=== PATIENT | female | born 1950 | race Caucasian/White ===

== ENCOUNTER 2017-12-17 09:54 | Outpatient (CLI) | payer OTHER | END 2017-12-17 09:55 | disposition home or self-care (01) | LOC: DTY/OP 09:54 | PROVIDERS: ATTEND Specialist | DX: Z01.818 Encounter for other preprocedural examination (principal); E66.01 Morbid (severe) obesity due to excess calories | CPT/HCPCS: 97802 ==

== ENCOUNTER 2018-01-15 12:43 | Outpatient (CLI) | payer MEDICARE | END 2018-01-15 12:44 | disposition home or self-care (01) | LOC: LABBT 12:43 | PROVIDERS: ATTEND Specialist | DX: Z01.818 Encounter for other preprocedural examination (principal); E66.01 Morbid (severe) obesity due to excess calories; Z68.42 Body mass index [BMI] 45.0-49.9, adult ==

== ENCOUNTER 2018-01-15 13:00 | Inpatient (IN) | payer MEDICARE ==
[2018-01-15 13:13] VITALS: BMI 44.0
--- NOTE | 2018-01-15 13:37 | HP ---
This is an addendum to a history and physical that I dictated 12/06/2017. HISTORY OF PRESENT ILLNESS: Shanita Roa is a 67-year-old female, morbidly obese initially seen 243 pounds, 45 BMI, currently 233 pounds, 44 BMI, attended our bariatric seminar. She has failed pr evious nonsurgical weight loss efforts with comorbidities of arthritis, having had a right total knee replacement contemplating left total knee replacement. She ambulates with a cane. She has a histor y of coronary artery disease, hypertension, elevated cholesterol, sciatica, chronic knee, ankle and h ip pain and stress urinary incontinence. She denies any past history of diabetes, GERD, sleep apnea, DVT or pulmonary embolism. She has never had a myocardial infarction, but coronary bypass grafting in 2003, currently asymptomatic from a cardiac standpoint. She has chronic Coumadin anticoagulation for a prosthetic mitral valve. She had a cardiac stress test in 07/2017 that was unremarkable. She has seen Dr. Keyshawn Porras and preoperative evaluation and cleared her for surgery. Plan is to hold her Coumadin for 5 days and resume it 2-3 days postoperatively. Plan is for a laparoscopic sleeve gastre ctomy. She understands risks and benefits and consents. Questions answered today. Preoperative labs 12/07/2017; CBC: Hemoglobin 12. Thyroid function normal, vitamin D low at 13.4 on replacement. Folate levels normal, B12 levels normal. Hemoglobin A1c 5.8, PTH intact 462. Vitamin B1 133, normal. H. pylori elevated, amylase pyloric therapy, being followed closely by the [facility] while on antibiotics and home Coumadin. PAST MEDICAL HISTORY: For past history, see recently dictated history and physical. PHYSICAL EXAMINATION: VITAL SIGNS: Height 5 foot 1, 243 pounds, 45 BMI on initial visit and today's visit 233 pounds, 44 B ME, 134/63, 89, 97.6 degrees. HEENT: Unremarkable. LUNGS: Clear to auscultation. CARDIAC: Regular rate and rhythm without murmur or gallop. ABDOMEN: Soft, nontender, no masses. EXTREMITIES: Unremarkable. ASSESSMENT AND PLAN: Morbid obesity, comorbidities as noted above. PLAN: Laparoscopic sleeve gastrectomy. Risk and benefits reviewed with her. Questions answered. S he is committed to be successful with postoperative followup. In fact, she states that she wants to attend support groups prior to her surgery. She has visited with psychologist and feels she would be a good candidate and has visited with dietary regarding her perioperative dietary changes.
[2018-01-23] MEDS ORDERED: Scopolamine 1.5 mg/72 hour Patch ONE (06:32)
[2018-01-23] MEDS ORDERED: Sodium Chloride 0.9% 100 ML ONE (06:32)
[2018-01-23] MEDS ORDERED: cefOXitin 2 GM VIAL ONE (06:32)
[2018-01-23] MEDS ORDERED: Ketorolac Tromethamine 30 MG/ML VIAL ONE (06:32)
[2018-01-23] MEDS ORDERED: Heparin 5,000 UNITS/ML VIAL ONE (06:32)
[2018-01-23] MEDS ORDERED: Bupivacaine/Epinephrine 0.25% 30 ML VIAL ONE (06:34)
[2018-01-23 06:44] LABS: INR-International Normal Ratio 1.1; Prothrombin Time 14.1 SEC (12.0-14.7)
[2018-01-23] MEDS ORDERED: Fentanyl 250 MCG/5 ML VIAL ONE (06:56)
[2018-01-23] MEDS ORDERED: SUGAMMADEX SODIUM 500 MG/5 ML VIAL ONE (07:17)
[2018-01-23] MEDS ORDERED: Ondansetron HCl/PF 4 MG/2 ML Vial IVP PRN ×2 (07:52→09:21)
[2018-01-23] MEDS ORDERED: Morphine 4 MG/ML VIAL SLOW IVP PRN (07:52)
[2018-01-23] MEDS ORDERED: Dextrose 5% in Water 1,000 ML IV PRN (07:52)
[2018-01-23] MEDS ORDERED: Hydrocodone-Acetamin 15 ML UDCUP PO PRN (07:52)
[2018-01-23] MEDS ORDERED: Dextrose 50% Abboject 50 ML SYRINGE SLOW IVP PRN (07:52)
[2018-01-23] MEDS ORDERED: hydrALAZINE 20 MG/ML VIAL SLOW IVP PRN (07:52)
[2018-01-23] MEDS ORDERED: diphenhydrAMINE 50 MG/ML VIAL IVP PRN (07:52)
[2018-01-23] MEDS ORDERED: Promethazine HCl 25 MG/ML VIAL IM PRN (09:21)
[2018-01-23] MEDS ORDERED: Promethazine HCl 25 MG/ML VIAL SLOW IVP PRN (09:21)
[2018-01-23] MEDS ORDERED: Fentanyl 100 MCG/2 ML VIAL ONE ×2 (11:16→12:17)
--- NOTE | 2018-01-23 12:14 | OP ---
DATE OF PROCEDURE: 01/23/2018 PREOPERATIVE DIAGNOSES: Morbid obesity, presenting weight 243 pounds. Weight just prior to surgery 233 pounds. Presenting BMI 45, BMI just at the time of surgery 43. Comorbidities; coronary artery d isease, hypertension, elevated cholesterol, sciatic, stress urinary incontinence. PROCEDURE: Laparoscopic sleeve gastrectomy, hiatal hernia repair, completion upper endoscopy. 36 Fr ench bougie used, staple line within 4 cm of the pylorus. Omental patch over the upper staple line f undus. SURGEON: Dr. Medardo Borrego ANESTHESIA: General. Local 0.25% Marcaine with epinephrine, 60 mL. PROCEDURE: The patient was taken to the operating room where under general anesthesia, abdomen was p repared with ChloraPrep, draped in routine fashion in supine position and then positioned reverse Sourav ndelenburg. Supraumbilical incision made. Pneumoperitoneum to 15 mmHg obtained with the Veress need le, replacing it with a 5 port and video laparoscope inserted. Bilateral midclavicular upper abdomin al incisions made and a 15 port placed on the left, a 12 port placed on the right and bilateral far l ateral subcostal incision made and 5 ports placed. Subxiphoid incision made and Nathansen liver retr actor placed under laparoscopic visualization, retracting the left lobe of the liver. The liver was malleable, small and nonfatty. Hiatus was well visualized. Gastrocolic ligament taken down with the LigaSure beginning at the distal greater curvature progressing up towards the angle of His, identify ing the angle of His and identifying this hiatal hernia. Sleeve gastrectomy undertaken by initially placing a 36 bougie positioned along the lesser curvature, a position just proximal to the pylorus. Initial staple line green load fired in the antrum, subsequent gold and blue loads fired taking care to not encroach in the area of the incisura. Serial divisions taking care to remove all redundant st omach, serially fired up towards the fundus just lateral to the angle of His. Once this was complete d, the stomach was removed through the 15 port and 0 Vicryl GraNee needle used to place [id number] ht suture under laparoscopic visualization. Stomach had been removed and submitted to Pathology. Go od hemostasis obtained. Clips applied along the staple line. At this point, the hiatal hernia was c losed by placing a Colville drain through a 12 mm port and held in place by an instrument placed throu gh a 5 mm port placed in the left lower quadrant. Once this was in position, the Manas drain place d around the lower esophagus downward caudal traction applied and the right and left crura approximat ed after taking down the gastrohepatic ligament, clearing this for visualization. EndoStitch 0 Bralo n used to close the posterior hiatus with 2 stitches with a 36-Irish bougie in place. At this point , while the bougie was in place I then applied omentum to the upper fundus staple line and to the rig ht and left crura using the EndoStitch. EndoStitch was then used to apply omentum near the upper sta ple line just approximately 4 cm caudally. At this point, the bougie was removed. Endoscopy perform ed, placing the endoscope placed per os under direct visualization down the esophagus to the gastric sleeve, visualizing the pylorus. There was no obstruction, no bleeding, no evidence of leakage. Sco pe withdrawn decompressing the stomach, noting normal esophagus otherwise. At this point, Rajan liver retractor was removed. Good hemostasis noted. Irrigant and pneumoperitoneum evacuated. All t his instruments removed and all skin incisions approximated with interrupted subdermal 4-0 Monocryl a nd DermaGlue applied.
[2018-01-23] MEDS: 1/2 NS w/KCL 20 mEq 1,000 ML IV SCH ×2 (13:45→17:06)
[2018-01-23] MEDS: Spironolactone 25 MG TAB PO SCH (13:45)
[2018-01-23] MEDS: FLUoxetine HCl 20 MG CAP PO SCH (13:45)
[2018-01-23] MEDS: Acetaminophen 1,000 MG in Premix Bag 1 BAG IVPB SCH ×2 (13:45→17:40)
[2018-01-23] MEDS: Amlodipine 5 MG TAB PO SCH (13:45)
[2018-01-23] MEDS: Pantoprazole 40 MG VIAL IVP SCH (13:45)
[2018-01-23] MEDS: Ketorolac Tromethamine 30 MG/ML VIAL IVP SCH ×2 (13:46→17:44)
[2018-01-23] MEDS ORDERED: PROPOFOL 200 MG/20 ML VIAL ONE (14:17)
[2018-01-23] MEDS ORDERED: PHENYLEPHRINE-NS 100 MCG/ML 10 ML SYRINGE ONE (14:17)
[2018-01-23] MEDS ORDERED: Ondansetron HCl/PF 4 MG/2 ML Vial ONE (14:17)
[2018-01-23] MEDS ORDERED: Glycopyrrolate 0.2 MG/ML 5 ML SYRINGE ONE (14:17)
[2018-01-23] MEDS ORDERED: Dexamethasone 20 MG/5 ML VIAL ONE (14:17)
[2018-01-23] MEDS ORDERED: Lidocaine 1% PF 5 ML VIAL ONE (14:17)
[2018-01-23] MEDS ORDERED: traMADol HCl 50 MG TAB PO PRN ×2 (20:00)
[2018-01-23] MEDS ORDERED: Latanoprost 0.005% Ophth Soln 2.5 ml Bottle EA EYE SCH (21:00)
[2018-01-23] MEDS ORDERED: Enoxaparin Sodium 40 MG/0.4 ML SYRINGE SC SCH (21:00)
[2018-01-23] MEDS ORDERED: Doxazosin 2 MG TAB PO SCH (21:00)
[2018-01-24] MEDS: 1/2 NS w/KCL 20 mEq 1,000 ML IV SCH ×2 (00:56→10:28)
[2018-01-24] MEDS: Acetaminophen 1,000 MG in Premix Bag 1 BAG IVPB SCH ×2 (00:57→06:42)
[2018-01-24] MEDS: Ketorolac Tromethamine 30 MG/ML VIAL IVP SCH ×2 (00:58→06:43)
[2018-01-24 05:16] LABS: #Eosinphils 0.1 thou/uL (0.0-0.7); #Monocytes 0.7 thou/uL (0.11-0.59); #Neutrophils 6.5 thou/uL (1.40-6.50); %Eosinophils 1.4 % (0.0-10.0); %Monocytes 8.4 % (0.0-10.0); %Neutrophils 78.3 % (42.0-75.0); Hemoglobin 11.4 g/dL (12.0-16.0); Mean Corpuscular HGB CONC 33.9 g/dL (32.0-36.0); Mean Corpuscular Hemoglobin 31.8 pg (27.0-31.0); Mean Corpuscular Volume 93.6 fL (78.0-98.0); Mean Platelet Volume 8.3 fL (7.4-10.4); Platelet Count 187 thou/uL (130-400); RBC Distribution Width 12.1 % (11.5-14.5); Red Blood Cell (RBC) Count 3.58 mill/uL (4.20-5.40); White Blood Cell (WBC) Count 8.3 thou/uL (4.8-10.8)
[2018-01-24 05:25] LABS: Anion Gap 11 mmol/L (10-20); BUN (Urea Nitrogen) 24 mg/dL (9.8-20.1); Calc. Creatinine Clearance 89 mL/min (70-130); Calcium 9.7 mg/dL (7.8-10.44); Carbon Dioxide 21 mmol/L (23-31); Chloride 112 mmol/L (98-107); Estimated GFR-MDRD 55; Glucose 103 mg/dL (80-115); Potassium 5.1 mmol/L (3.5-5.1); Sodium 139 mmol/L (136-145)
[2018-01-24] MEDS ORDERED: Acetaminophen 500 MG TAB PO PRN (08:00)
[2018-01-24 09:05] VITALS: BP 124/75
[2018-01-24] MEDS: FLUoxetine HCl 20 MG CAP PO SCH (09:36)
[2018-01-24] MEDS: Spironolactone 25 MG TAB PO SCH (09:36)
[2018-01-24] MEDS: Pantoprazole 40 MG VIAL IVP SCH (09:39)
[2018-01-24] MEDS: Amlodipine 5 MG TAB PO SCH (09:42)
--- NOTE | 2018-01-24 09:46 | PRG ---
DATE OF SERVICE: 01/24/2018 SUBJECTIVE: Ms. Roa is doing well after laparoscopic hiatal hernia repair and sleeve gastrecto my. She denies having any pain. Her physician, primary care, ordered tramadol for her recently. Agustin rodriguez does not need anything stronger. PHYSICAL EXAMINATION: VITAL SIGNS: Temperature 97.2 degrees, 54, 18, 124/75. LABORATORY: This morning hemoglobin is 11.4, white count 8.2. Basic metabolic profile was normal. GENERAL: She is tolerating liquids well without nausea or vomiting. She has passed flatus. She has ambulated in the hallways frequently. LUNGS: Clear to auscultation. CARDIAC: Regular rate and rhythm without murmur or gallop. ABDOMEN: Soft, nontender, no masses. Surgical wounds look good. Bowel sounds present. EXTREMITIES: Unremarkable. ASSESSMENT AND PLAN: Doing well after laparoscopic hiatal hernia repair and sleeve gastrectomy. We will plan discharge home to resume home medications. She has tramadol supply at home. She will take Tylenol as needed.
[2018-01-24 10:22] VITALS: TEMP 98.2
--- NOTE | 2018-01-24 13:47 | DIS ---
DATE OF ADMISSION: 01/23/2018 DATE OF DISCHARGE: 01/24/2018 DISCHARGE MEDICATIONS: Resume her home medications including Coumadin tonight 5 mg a day, spironolac tone 25 mg a day, simvastatin 40 mg a day, magnesium daily, eyedrops, fluoxetine 40 mg a.m., Cardura 2 mg at bedtime, cranberry extract daily, amlodipine 5 mg a day. She will use tramadol at home. She has a supply prescribed by her doctor. She will take Tylenol as indicated. She will take her Prilo sec daily for 3 months and her vitamins as well as her protein supplements. No lifting restrictions. FOLLOWUP: Follow up in my office in a week to 10 days. DIET: Bariatric diet protocol advancement. DIAGNOSIS: Morbid obesity, presenting 243 pounds, 45. Preoperatively, 233 pounds, 43 BMI. Comorbidities; coronary artery disease, hypertension, elevated cholesterol. Sciatic pain, stress uri nary incontinence. She takes tramadol at home for back pain. The patient presented to our bariatric seminar, went to the preoperative protocol. cleared by Cardiol linh and underwent sleeve gastrectomy findings of a hiatal hernia repaired at the time of surgery, had omental patch over her upper fundus area for safety reasons. Postoperatively, she convalesced well and tolerated her liquids and is being discharged home with follow up in my office in 2-3 weeks. She will take her PPI, vitamins and protein supplements as directed. ACTIVITY: As tolerated without restrictions.
== END 2018-01-24 10:56 | disposition home or self-care (01) | DRG 621 ==
LOC: SURG A 01-23 05:42
PROVIDERS: ADMIT Specialist; ATTEND Specialist
PROC: 0DB64Z3 Excision of Stomach, Percutaneous Endoscopic Approach, Vertical (ICD-10-PCS; principal; 2018-01-23)
PROC: 0BQT4ZZ Repair Diaphragm, Percutaneous Endoscopic Approach (ICD-10-PCS; 2018-01-23)
DX: E66.01 Morbid (severe) obesity due to excess calories (principal); Z71.3 Dietary counseling and surveillance; Z68.41 Body mass index [BMI] 40.0-44.9, adult; I25.10 Atherosclerotic heart disease of native coronary artery without angina pectoris; I10 Essential (primary) hypertension; E78.00 Pure hypercholesterolemia, unspecified; N39.3 Stress incontinence (female) (male); Z95.1 Presence of aortocoronary bypass graft; Z79.01 Long term (current) use of anticoagulants; K44.9 Diaphragmatic hernia without obstruction or gangrene
CPT/HCPCS: 36415; 80048; 85025; 85610; 88307; 88312; 94760; C9113; J0131; J0694; J1100; J1644; J1650; J1885; J2001; J2405; J2704; J3010; J7050

== ENCOUNTER 2018-06-05 07:26 | Outpatient (CLI) | payer MEDICARE ==
--- NOTE | 2018-06-05 10:15 | ULT ---
BILATERAL RENAL ULTRASOUND AND RENAL DOPPLER: Date: 06/05/18 HISTORY: Chronic kidney disease. COMPARISON: None. TECHNIQUE: Longitudinal and transverse imaging of the kidneys performed. Kidneys are also interrogated with Morejon scale, color flow, Doppler imaging, and spectral waveform analysis. FINDINGS: Bilateral renal cortical thinning. Right kidney measures 8.3 x 4.2 x 4.9 cm. Left kidney measures 8.4 x 4.4 x 5.2 cm. Multiple anechoic foci involving the left renal cortex compatible with cyst. Largest cyst is in the upper pole of the l eft kidney measuring 1.7 x 1.5 x 1.4 cm. Bilaterally, no hydronephrosis. Urinary bladder is unremarkable. Bladder volume is 76 mL. RENAL DOPPLER: Right renal artery: 178.0 cm/second Left renal artery: 95.0 cm/second Aorta: 97.1 cm/second Right renal artery:aorta ratio is 1.83. Left renal artery:aorta ratio is 0.97. Arcuate Artery Resistive Index: Right Kidney: Superior: 0.71 Mid: 0.74 Inferior 0.69 Left Kidney: Superior: 0.79 Mid: 0.65 Inferior: 0.63 IMPRESSION: 1. Bilateral renal cortical thinning. 2. No evidence of hydronephrosis. 3. Multiple left renal cortical cysts. 4. Increased arcuate artery resistive index in left and right kidney. POS: H
== END 2018-06-05 07:27 | disposition home or self-care (01) ==
LOC: BICULT 07:26
PROVIDERS: ATTEND Internal Medicine Nephrology
DX: N18.3 Chronic kidney disease, stage 3 (moderate) (principal); N28.1 Cyst of kidney, acquired
CPT/HCPCS: 76700; 76770

== ENCOUNTER 2018-10-09 17:48 | Emergency (ER) | payer MEDICARE ==
[2018-10-09 18:14] LABS: #Eosinphils 0.1 thou/uL (0.0-0.7); #Lymphocytes 1.9 thou/uL (1.20-3.40); #Monocytes 0.4 thou/uL (0.11-0.59); #Neutrophils 2.5 thou/uL (1.40-6.50); %Basophils 0.4 % (0.0-1.0); %Eosinophils 1.8 % (0.0-10.0); %Lymphocytes 39.3 % (21.0-51.0); %Monocytes 8.4 % (0.0-10.0); Hemoglobin 11.7 g/dL (12.0-16.0); Mean Corpuscular HGB CONC 32.6 g/dL (32.0-36.0); Mean Corpuscular Hemoglobin 31.3 pg (27.0-31.0); Mean Corpuscular Volume 96.1 fL (78.0-98.0); Mean Platelet Volume 7.5 fL (7.4-10.4); Platelet Count 208 thou/uL (130-400); RBC Distribution Width 11.5 % (11.5-14.5); Red Blood Cell (RBC) Count 3.75 mill/uL (4.20-5.40); White Blood Cell (WBC) Count 4.9 thou/uL (4.8-10.8)
[2018-10-09 18:21] LABS: INR-International Normal Ratio 3.2; PTT 44.5 SEC (22.9-36.1); Prothrombin Time 32.5 SEC (12.0-14.7)
[2018-10-09 18:43] LABS: ALT (SGPT) 10 U/L (8-55); AST (SGOT) 17 U/L (5-34); Albumin 3.8 g/dL (3.4-4.8); Alkaline Phosphatase 98 U/L (40-150); Anion Gap 10 mmol/L (10-20); BUN (Urea Nitrogen) 20 mg/dL (9.8-20.1); Bilirubin, Total 0.3 mg/dL (0.2-1.2); Calc. Creatinine Clearance 0 mL/min (70-130); Calcium 10.7 mg/dL (7.8-10.44); Carbon Dioxide 25 mmol/L (23-31); Chloride 113 mmol/L (98-107); Estimated GFR-MDRD 55; Globulin 2.6 g/dL (2.4-3.5); Glucose 113 mg/dL (80-115); Protein, Total 6.4 g/dL (6.0-8.3); Sodium 144 mmol/L (136-145)
--- NOTE | 2018-10-09 19:54 | CT ---
CT BRAIN WITHOUT CONTRAST: HISTORY:Injury, fall, trauma to the head, headache. Patient on blood thinners COMPARISON:None FINDINGS: There are foci of decreased attenuation in the periventricular white matter, consistent with chronic small vessel ischemic disease. No evidence of acute infarct, hemorrhage, midline shift or abnormal extra-axial fluid collections is seen. The ventricular size is appropriate and the basilar cisterns are patent. The bony calvarium is intact. The visualized paranasal sinuses and mastoid air cells are well aerated. IMPRESSION: No CT evidence of acute intracranial process.
--- NOTE | 2018-10-09 20:57 | RAD ---
LUMBAR SPINE THREE VIEWS: 10/09/18 HISTORY: Fall. Back pain. FINDINGS: Comparison is made with exam of 10/23/05. Mild superior end plate compression fracture involving the L 4 vertebral body is stable. No new compression fracture is identified. Multilevel degenerative change s are present. Mild scoliosis of the spine is present. IMPRESSION: No acute process. POS: RAMON
[2018-10-09] MEDS ORDERED: Acetaminophen 500 MG TAB ONE (21:02)
[2018-10-09 21:33] LABS: Bilirubin Negative (Negative); Blood, Urine Negative (Negative); Clarity CLOUDY (Clear); Glucose, Urine (Dipstick) Negative (Negative); Leukocyte Moderate (Negative); Nitrite Positive (Negative); Protein, Urine (Dipstick) Negative (Neg-Trace); Specific Gravity, Urine 1.022 (1.002-1.036)
[2018-10-09 21:35] LABS: Bacteria/HPF 3+ HPF (None Seen); Pathc Cast-AUWi Flag 1.63 (0-2.49); Squamous Epithelial 0-3 HPF (0-3)
[2018-10-09 21:47] LABS: RBC/HPF 0-3 HPF (0-3)
[2018-10-09 21:51] LABS: Crystals/HPF 2+ CA OXALATE HPF (Negative); Hyaline Casts/LPF 0-3 HYALINE CAST LPF (0-3 Hyaline)
--- NOTE | 2018-10-12 15:40 | EKG ---
Test Reason : Blood Pressure : / mmHG Vent. Rate : 055 BPM Atrial Rate : 055 BPM P-R Int : 202 ms QRS Dur : 106 ms QT Int : 444 ms P-R-T Axes : 088 005 024 degrees QTc Int : 424 ms Sinus bradycardia Minimal voltage criteria for LVH, may be normal variant Borderline ECG Confirmed by MERA RANDALL ([id number]), development editor VANDANA LORA ([id number]) on 10/12/2018 3:39:56 PM Referred By: Confirmed By:MERA RANDALL
== END 2018-10-09 22:30 | disposition home or self-care (01) ==
LOC: ERS 17:48
DX: S09.90XA Unspecified injury of head, initial encounter (principal); N39.0 Urinary tract infection, site not specified; E78.5 Hyperlipidemia, unspecified; I10 Essential (primary) hypertension; F41.9 Anxiety disorder, unspecified; Z79.899 Other long term (current) drug therapy; W19.XXXA Unspecified fall, initial encounter
CPT/HCPCS: 36415; 70450; 72100; 80053; 81003; 81015; 84484; 85025; 85610; 85730; 87077; 87086; 87186; 93005

== ENCOUNTER 2019-01-22 06:41 | Emergency (ER) | payer MEDICARE ==
[2019-01-22 07:50] LABS: Bacteria/HPF 3+ HPF (None Seen); Bilirubin Negative (Negative); Blood, Urine Negative (Negative); Clarity Clear (Clear); Glucose, Urine (Dipstick) Normal (Negative); Leukocyte 250 Leu/uL (Negative); Nitrite 2+ (Negative); Protein, Urine (Dipstick) Negative (Neg-Trace); Squamous Epithelial 0-3 HPF (0-3); Urobilinogen Normal mg/dL (Less than 2); WBC/HPF 21-50 HPF (0-3)
[2019-01-22 08:19] LABS: Hemoglobin 11.8 g/dL (12.0-16.0); Mean Corpuscular HGB CONC 33.8 g/dL (32.0-36.0); Mean Corpuscular Hemoglobin 31.8 pg (27.0-31.0); Mean Corpuscular Volume 94.2 fL (78.0-98.0); Mean Platelet Volume 8.2 fL (7.4-10.4); Platelet Count 144 thou/uL (130-400); RBC Distribution Width 12.1 % (11.5-14.5); White Blood Cell (WBC) Count 7.4 thou/uL (4.8-10.8)
[2019-01-22 08:27] LABS: ALT (SGPT) 8 U/L (8-55); AST (SGOT) 16 U/L (5-34); Albumin 3.7 g/dL (3.4-4.8); Alkaline Phosphatase 88 U/L (40-150); Anion Gap 10 mmol/L (10-20); BUN (Urea Nitrogen) 23 mg/dL (9.8-20.1); Bilirubin, Total 0.7 mg/dL (0.2-1.2); Calc. Creatinine Clearance 0 mL/min (70-130); Calcium 10.6 mg/dL (7.8-10.44); Carbon Dioxide 22 mmol/L (23-31); Chloride 114 mmol/L (98-107); Estimated GFR-MDRD 65; Globulin 2.4 g/dL (2.4-3.5); Glucose 96 mg/dL (80-115); Magnesium 1.6 mg/dL (1.6-2.6); Potassium 3.7 mmol/L (3.5-5.1); Protein, Total 6.1 g/dL (6.0-8.3); Sodium 142 mmol/L (136-145)
[2019-01-22 08:38] LABS: Band 11 % (5-11); Lymphocytes 13 % (21-51); MDiff Complete? YES; Neutrophil 76 % (42-75); RBC Morphology Normal
[2019-01-22] MEDS ORDERED: cefTRIAXone\\ROCEPHIN 2 GM VIAL ONE (09:09)
== END 2019-01-22 10:15 | disposition home or self-care (01) ==
LOC: ERS 06:41
DX: N30.00 Acute cystitis without hematuria (principal); E78.5 Hyperlipidemia, unspecified; I10 Essential (primary) hypertension; F41.9 Anxiety disorder, unspecified; Z79.01 Long term (current) use of anticoagulants; Z79.899 Other long term (current) drug therapy
CPT/HCPCS: 80053; 81003; 81015; 83735; 84484; 85025; 87077; 87086; 87186; 93005; 96361; 96365; 96367; J0696; J3411

== ENCOUNTER 2019-05-27 10:01 | Outpatient (CLI) | payer MEDICARE ==
--- NOTE | 2019-05-27 12:51 | CT ---
CT NECK WITH AND WITHOUT CONTRAST (PARATHYROID PROTOCOL): 05/27/2019 HISTORY: A 68-year-old female with hyperparathyroidism. TECHNIQUE: IV contrast: Isovue 370 120 mL. Pre-contrast scan, 25 second, post-contrast scan, and 65 second postcontrast scan, from 3.5 cm inferi or to erich to mid maxillary sinus level. Coronal and sagittal reconstructions. FINDINGS: At the C7 level, broadly abutting the right lateral edge of the esophagus, posterior to the right lob e of the thyroid gland, posterior to the right common carotid artery and broadly abutting the anterom edial surface of the right longus colli muscle, there is a 0.7 x 1 x 1.6 cm small mass, which has no intrinsic iodine, and enhances uniformly. This is a very good candidate for parathyroid adenoma (axia l images 51 of 101, series 6, 2 and 5; sagittal images 87 of 180, series 605 and 602; coronal images 66 of 153, series 604 and 601. IMPRESSION: Very good candidate for parathyroid adenoma butting the right lateral edge of the esophagus and poste rior to the midpole of the right lobe of the thyroid gland at the C7 level. POS: OFF
[2019-05-27] MEDS ORDERED: Iopamidol 370 76% 100 ML VIAL ONE (12:52)
== END 2019-05-27 10:02 | disposition home or self-care (01) ==
LOC: BICCT 10:01 → CT 10:02
PROVIDERS: ATTEND Otolaryngology Plastic Surgery within the Head & Neck
DX: E21.0 Primary hyperparathyroidism (principal)
CPT/HCPCS: 70492; 82565; Q9967

== ENCOUNTER 2019-06-27 10:23 | Outpatient (CLI) | payer MEDICARE ==
--- NOTE | 2019-06-27 14:22 | NM ---
EXAM: Nuclear medicine parathyroid scan with SPECT-CT COMPARISON: CT neck 05/27/2019 HISTORY: Hyperparathyroidism TECHNIQUE: A nuclear medicine parathyroid scan with SPECT CT was performed using 24.5 mCi of techneti um 99m sestamibi. FINDINGS: Immediate and delayed images were performed. Uptake is seen in the thyroid and salivary glands. There is a focal area of increased uptake of radiopharmaceutical and delayed images adjacent to the l ower border of the right thyroid lobe. This corresponds to the abnormality seen on recent CT. IMPRESSION: Right lower parathyroid adenoma.
== END 2019-06-27 10:24 | disposition home or self-care (01) ==
LOC: NM 10:23
PROVIDERS: ATTEND Otolaryngology Plastic Surgery within the Head & Neck
DX: E21.0 Primary hyperparathyroidism (principal); D35.1 Benign neoplasm of parathyroid gland
CPT/HCPCS: 78072; A9500

== ENCOUNTER 2019-09-01 08:20 | Outpatient (CLI) | payer MEDICARE ==
--- NOTE | 2019-09-01 09:17 | MMO ---
Bilateral MAMMO Bilat Screen DDI+DIONISIO. CLINICAL HISTORY: Patient is 69 years old and is seen for screening. The patient has no family history of breast cancer. The patient has no personal history of cancer. VIEWS: The views performed were: bilateral craniocaudal with tomosynthesis; bilateral mediolateral oblique with tomosynthesis; right exaggerated craniocaudal; and cleavage view. FILMS COMPARED: The present examination has been compared to a prior imaging study performed at [facility], [place] on 10/14/2015. This study has been interpreted with the assistance of computer-aided detection. MAMMOGRAM FINDINGS: There are scattered fibroglandular densities. Benign calcifications are noted bilaterally. There are no suspicious masses, suspicious calcifications, or new areas of architectural distortion. IMPRESSION: THERE IS NO MAMMOGRAPHIC EVIDENCE OF MALIGNANCY. A ROUTINE FOLLOW-UP MAMMOGRAM IN 1 YEAR IS RECOMMENDED. THE RESULTS OF THIS EXAM WERE SENT TO THE PATIENT. ACR BI-RADS Category 2 - Benign finding MAMMOGRAPHY NOTE: 1. A negative mammogram report should not delay a biopsy if a dominant of clinically suspicious mass is present. 2. Approximately 10% to 15% of breast cancers are not detected by mammography. 3. Adenosis and dense breasts may obscure an underlying neoplasm. Reported by: NICK HERNÁNDEZ MD Electonically Signed: [id number]
--- NOTE | 2019-09-01 09:34 | BD ---
BONE DENSITOMETRY USING DEXA: Date: 09/01/2019 HISTORY: Postmenopausal screening for osteoporosis. FINDINGS: Lumbar Spine: BMD (g/cm2) L1 0.920 T-Score: -0.6 Z-Score: 1.3 L2 1.060 T-Score: -0.3 Z-Score: 2.4 L3 1.178 T-Score: 0.9 Z-Score: 3.1 L4 1.062 T-Score: 0.0 Z-Score: 2.3 L1-L4 1.063 T-Score: 0.1 Z-Score: 2.3 Femoral Neck: 0.647 T-Score: -1.8 Z-Score: 0.0 Total Femur: 0.766 T-Score: -1.4 Z-Score: 0.1 The 10 year fracture risk for a major osteoporotic fracture is 26% and for a hip fracture is 5.3%. IMPRESSION: Osteopenia. POS: OFF
== END 2019-09-01 08:21 | disposition home or self-care (01) ==
LOC: BICMAMMO 08:20
PROVIDERS: ATTEND Family Medicine
DX: Z12.31 Encounter for screening mammogram for malignant neoplasm of breast (principal); Z13.820 Encounter for screening for osteoporosis; N95.9 Unspecified menopausal and perimenopausal disorder; M85.859 Other specified disorders of bone density and structure, unspecified thigh
CPT/HCPCS: 77063; 77067; 77080

== ENCOUNTER 2019-09-27 13:52 | Inpatient (IN) | payer MEDICARE ==
[2019-09-27] MEDS ORDERED: Acetaminophen 500 MG TAB ONE (14:12)
[2019-09-27 14:50] LABS: #Eosinphils 0.1 thou/uL (0.0-0.7); #Lymphocytes 1.3 thou/uL (1.20-3.40); #Monocytes 0.9 thou/uL (0.11-0.59); #Neutrophils 4.6 thou/uL (1.40-6.50); %Basophils 0.2 % (0.0-1.0); %Eosinophils 1.9 % (0.0-10.0); %Lymphocytes 18.4 % (21.0-51.0); %Monocytes 12.6 % (0.0-10.0); %Neutrophils 66.9 % (42.0-75.0); Hemoglobin 11.3 g/dL (12.0-16.0); Mean Corpuscular HGB CONC 32.7 g/dL (32.0-36.0); Mean Corpuscular Hemoglobin 31.5 pg (27.0-31.0); Mean Corpuscular Volume 96.2 fL (78.0-98.0); Mean Platelet Volume 7.5 fL (7.4-10.4); Platelet Count 213 thou/uL (130-400); RBC Distribution Width 12.1 % (11.5-14.5); Red Blood Cell (RBC) Count 3.59 mill/uL (4.20-5.40); White Blood Cell (WBC) Count 6.9 thou/uL (4.8-10.8)
[2019-09-27 15:13] LABS: ALT (SGPT) 8 U/L (8-55); AST (SGOT) 15 U/L (5-34); Albumin 3.8 g/dL (3.4-4.8); Alkaline Phosphatase 97 U/L (40-110); Anion Gap 14 mmol/L (10-20); BUN (Urea Nitrogen) 19 mg/dL (9.8-20.1); Bilirubin, Total 0.4 mg/dL (0.2-1.2); Calc. Creatinine Clearance 0 mL/min (70-130); Calcium 8.5 mg/dL (7.8-10.44); Carbon Dioxide 20 mmol/L (23-31); Chloride 112 mmol/L (98-107); Estimated GFR-MDRD 53; Globulin 2.7 g/dL (2.4-3.5); Glucose 94 mg/dL (83-110); Potassium 4.2 mmol/L (3.5-5.1); Protein, Total 6.5 g/dL (6.0-8.3); Sodium 142 mmol/L (136-145)
[2019-09-27] MEDS ORDERED: Cefepime 2 GM VIAL ONE (15:23)
[2019-09-27] MEDS ORDERED: Ondansetron PF 4 MG/2 ML Vial IVP PRN (18:10)
[2019-09-27] MEDS ORDERED: traMADol HCl 50 MG TAB PO PRN (18:10)
[2019-09-27] MEDS ORDERED: Senokot S 8.6-50 MG TAB PO PRN (18:10)
[2019-09-27] MEDS ORDERED: Guaifenesin DM 100-10/5 ML UDCUP PO PRN (18:10)
[2019-09-27] MEDS ORDERED: Bisacodyl 10 MG SUPP PR PRN (18:10)
[2019-09-27 18:23] LABS: INR-International Normal Ratio 2.5; PTT 46.9 SEC (22.9-36.1); Prothrombin Time 26.9 SEC (12.0-14.7)
[2019-09-27 18:28] VITALS: BMI 30.4
--- NOTE | 2019-09-27 21:09 | HP ---
REASON FOR ADMISSION: Right arm cellulitis, failed outpatient treatment. HISTORY OF PRESENTING ILLNESS: The patient gives history of having a scratch in her right forearm, which she noticed on Sunday. From then on, it started to become red and swollen. She went to see her primary care physician and was given Keflex, which she has taken for the last 3 days now at 500 mg 3 times daily. Despite this, the pain in the entire forearm is red and swollen. This prompted her to come to the emergency room. No fever at home. On arrival here, had a temperature of 99 degrees. No complaints of cough or expectoration. PAST MEDICAL AND SURGICAL HISTORY: Hypertension, dyslipidemia, history of CABG for two-vessel disease, mitral valve replacement, mechanical valve, right knee replacement, bilateral ankle surgery, hysterectomy, gastric sleeve surgery, bladder sling surgery, surgery on her toe, partial parathyroids removed, anxiety disorder, osteoporosis, and history of Raynaud phenomenon. CURRENT MEDICATIONS: 1. Norvasc 5 mg p.o. q.a.m. 2. Vitamin D3 of 1000 units p.o. daily. 3. Doxazosin 2 mg p.o. at bedtime. 4. Latanoprost eye drops to both eyes at bedtime. 5. Sertraline 100 mg p.o. daily. 6. Simvastatin 40 mg p.o. q.p.m. 7. Spironolactone 12.5 mg p.o. q.a.m. 8. Coumadin 5 mg p.o. at bedtime. 9. Ultram p.r.n. for pain. ALLERGIES: NO KNOWN DRUG ALLERGIES. PERSONAL HISTORY: Does not abuse alcohol or drugs. She ambulates with a cane due to osteoarthritis. She lives with her son. The patient quit smoking in 2003, prior to which smoked 2 packs a day for 15 years or so. FAMILY HISTORY: Mother in her 70s, had history of coronary artery disease. Father at the age of 77. He had history of CHF and had amputation of the leg as well. She has a son, who has end-stage renal disease, and she helps him out. CODE STATUS: Full. REVIEW OF SYSTEMS: CONSTITUTIONAL: Negative for weight loss or gain, ability to conduct usual activities. SKIN: Negative for rash, itching. EYES: Negative for double vision, pain. ENT/MOUTH: Negative for nose bleeding, neck stiffness, pain, tenderness. CARDIOVASCULAR: Negative for palpitations, dyspnea on exertion, orthopnea. RESPIRATORY: Negative for shortness of breath, wheezing, cough, hemoptysis, fever or night sweats. GASTROINTESTINAL: Negative for poor appetite, abdominal pain, heartburn, nausea, vomiting, constipation, or diarrhea. GENITOURINARY: Negative for urgency, frequency, dysuria, nocturia. MUSCULOSKELETAL: Negative for pain, swelling. NEUROLOGIC/PSYCHIATRIC: Negative for anxiety, depression. ALLERGY/IMMUNOLOGIC: Negative for skin rash, bleeding tendency. PHYSICAL EXAMINATION: GENERAL: The patient is a 69-year-old female, who is currently not in any acute distress. VITAL SIGNS: Blood pressure 128/70, pulse 90 per minute, respiratory rate 16 per minute, temperature 99.1 degrees Fahrenheit, and saturating 97% on room air. NECK: Supple. No elevated JVD. HEENT: Eyes, extraocular muscles intact. Pupils are reacting to light. Oral cavity, mucous membranes are moist. No exudates or congestion. CARDIOVASCULAR SYSTEM: S1 and S2 heard. Regular rhythm. RESPIRATORY SYSTEM: Air entry 2+ bilateral. No rales or rhonchi. ABDOMEN: Soft. Bowel sounds heard. No tenderness, rigidity, or guarding. EXTREMITIES: Right forearm has a severe erythema and edema at the entire stretch of her forearm. She did active and passive range of movement. Her fingers are normal. No cyanosis is seen in the fingertips. Peripheral pulses are 1+ bilateral. No ischemic gangrene noted in any of the extremities. CENTRAL NERVOUS SYSTEM: No gross focal deficits noted. The patient is alert, awake, and oriented well. PSYCHIATRIC SYSTEM: The patient's mood is euthymic. No hallucinations or delusions. LABORATORY DATA: White count of 6.9, H and H 11 and 34, platelet count 213, and MCV is 96 with 66% neutrophils. PT/INR 26/2.5 and PTT of 46. Serum bicarb 20, BUN 19, and creatinine 1.0. Lactic acid 0.7. LFTs are within normal limits. Albumin is 3.8. CLINICAL IMPRESSION AND PLAN: The patient will be admitted to medical floor for right upper extremity cellulitis. She will be on vancomycin and ceftriaxone. We will continue her home dose of Coumadin 5 mg daily. We will also continue her home dose of Norvasc, doxazosin, fluoxetine, magnesium oxide, Lipitor, and spironolactone as before. We will continue to closely monitor for any further worsening of her cellulitis. Job ID: [id number]
[2019-09-27] MEDS: Doxazosin 2 MG TAB PO SCH (21:39)
[2019-09-27] MEDS: Vancomycin 1 GM in Premix Bag 1 BAG IVPB SCH (21:39)
[2019-09-27] MEDS: Famotidine 20 MG TAB PO SCH (21:39)
[2019-09-27] MEDS: Atorvastatin Calcium 20 MG TAB PO SCH (21:39)
[2019-09-27] MEDS: Latanoprost 0.005% Ophth Soln 2.5 ml Bottle EA EYE SCH (21:39)
[2019-09-28] MEDS: Acetaminophen 500 MG TAB PO PRN ×2 (01:11→15:56)
[2019-09-28 05:38] LABS: #Eosinphils 0.1 thou/uL (0.0-0.7); #Lymphocytes 1.2 thou/uL (1.20-3.40); #Monocytes 0.7 thou/uL (0.11-0.59); #Neutrophils 3.4 thou/uL (1.40-6.50); %Basophils 0.1 % (0.0-1.0); %Eosinophils 2.7 % (0.0-10.0); %Lymphocytes 22.4 % (21.0-51.0); %Monocytes 13.1 % (0.0-10.0); %Neutrophils 61.7 % (42.0-75.0); Hemoglobin 10.8 g/dL (12.0-16.0); Mean Corpuscular Hemoglobin 32.4 pg (27.0-31.0); Mean Corpuscular Volume 95.3 fL (78.0-98.0); Mean Platelet Volume 7.7 fL (7.4-10.4); Platelet Count 196 thou/uL (130-400); Red Blood Cell (RBC) Count 3.32 mill/uL (4.20-5.40); White Blood Cell (WBC) Count 5.5 thou/uL (4.8-10.8)
[2019-09-28 05:42] LABS: INR-International Normal Ratio 2.5; Prothrombin Time 27.1 SEC (12.0-14.7)
[2019-09-28 05:43] LABS: PTT 50.8 SEC (22.9-36.1)
[2019-09-28 05:56] LABS: Anion Gap 10 mmol/L (10-20); BUN (Urea Nitrogen) 17 mg/dL (9.8-20.1); Calc. Creatinine Clearance 71 mL/min (70-130); Calcium 8.1 mg/dL (7.8-10.44); Carbon Dioxide 20 mmol/L (23-31); Chloride 113 mmol/L (98-107); Estimated GFR-MDRD 65; Glucose 82 mg/dL (83-110); Potassium 4.3 mmol/L (3.5-5.1); Sodium 139 mmol/L (136-145)
[2019-09-28] MEDS: FLUoxetine HCl 20 MG CAP PO SCH (09:37)
[2019-09-28] MEDS: Spironolactone 25 MG TAB PO SCH (09:38)
[2019-09-28] MEDS: Amlodipine 5 MG TAB PO SCH (09:38)
[2019-09-28] MEDS: Famotidine 20 MG TAB PO SCH ×2 (09:38→20:27)
[2019-09-28] MEDS: Magnesium Oxide 250 MG TAB PO SCH (09:39)
--- NOTE | 2019-09-28 10:52 | PDOC.HOSPP ---
- Subjective Encounter Date: 09/28/19 Encounter Time: 09:45 Subjective: feels better, she can move her fingers better this am no pain in right forearm - Objective Vital Signs & Weight: Vital Signs (12 hours) Temp Pulse Resp BP BP BP Pulse Ox 09/28/19 09:38 64 111/72 09/28/19 08:00 97.7 F 64 18 111/72 96 09/28/19 05:55 97.8 F 55 L 18 114/65 95 Weight Weight 166 lb 6 oz Result Diagrams: 09/28/19 05:00 09/28/19 05:00 Hospitalist ROS - Medication Medications: Active Medications Generic Name Dose Route Start Last Admin Trade Name Freq PRN Reason Stop Dose Admin Acetaminophen 1,000 mg 09/27/19 18:10 09/28/19 01:11 Tylenol PO 1,000 mg Q6H PRN Administration Moderate to Severe Pain (6-10) Amlodipine Besylate 5 mg 09/28/19 09:00 09/28/19 09:38 Norvasc PO 5 mg QAM MARK Administration Atorvastatin Calcium 20 mg 09/27/19 21:00 09/27/19 21:39 Lipitor PO 20 mg HS MARK Administration Doxazosin Mesylate 2 mg 09/27/19 21:00 09/27/19 21:39 Cardura PO 2 mg HS MARK Administration Famotidine 20 mg 09/27/19 21:00 09/28/19 09:38 Pepcid PO 20 mg BID MARK Administration Fluoxetine HCl 40 mg 09/28/19 09:00 09/28/19 09:37 Prozac PO 40 mg DAILY MARK Administration Vancomycin HCl 1 gm/ Device 200 mls @ 200 mls/hr 09/27/19 21:00 09/27/19 21: 39 IVPB 200 mls 2100 MARK Administration Latanoprost 1 drop 09/27/19 21:00 09/27/19 21:39 Xalatan 0.005% Ophth Soln EA EYE 1 drop HS MARK Administration Magnesium Oxide 250 mg 09/28/19 09:00 09/28/19 09:39 Magnesium Oxide PO 250 mg DAILY MARK Administration Spironolactone 25 mg 09/28/19 09:00 09/28/19 09:38 Aldactone PO 25 mg QAM MARK Administration - Exam General Appearance: awake alert Eye: PERRL, anicteric sclera ENT: no oropharyngeal lesions, moist mucosa Neck: supple, no JVD Heart: RRR Heart - other findings: click of mech valve+ Respiratory: no wheezes, no rales Gastrointestinal: soft, non-tender, non-distended, normal bowel sounds Extremities - other findings: right UE erythema and edema+ Neurological: cranial nerve grossly intact, no focal deficits Psychiatric: normal affect, A&O x 3 Hosp A/P (1) Cellulitis of right forearm Code(s): L03.113 - CELLULITIS OF RIGHT UPPER LIMB Status: Acute (2) H/O mitral valve replacement with mechanical valve Code(s): Z95.2 - PRESENCE OF PROSTHETIC HEART VALVE Status: Chronic (3) HTN (hypertension) Code(s): I10 - ESSENTIAL (PRIMARY) HYPERTENSION Status: Chronic Qualifiers: Hypertension type: essential hypertension Qualified Code(s): I10 - Essential (primary) hypertension (4) Hypothyroidism Code(s): E03.9 - HYPOTHYROIDISM, UNSPECIFIED Status: Chronic Qualifiers: Hypothyroidism type: unspecified Qualified Code(s): E03.9 - Hypothyroidism , unspecified (5) Dyslipidemia Code(s): E78.5 - HYPERLIPIDEMIA, UNSPECIFIED Status: Chronic - Plan is on vanc and ceftriaxone right forearm cellulitis is slowly resolving, will need another 2 days of iv antibiotics hemostable to amb in room as tolerated.
[2019-09-28] MEDS ORDERED: Warfarin Sodium 5 MG TAB PO SCH (17:00)
[2019-09-28] MEDS: Warfarin Sodium 5 MG TAB PO SCH (17:17)
[2019-09-28] MEDS: Atorvastatin Calcium 20 MG TAB PO SCH (20:27)
[2019-09-28] MEDS: Doxazosin 2 MG TAB PO SCH (20:27)
[2019-09-28] MEDS: Latanoprost 0.005% Ophth Soln 2.5 ml Bottle EA EYE SCH (20:28)
[2019-09-28] MEDS: cefTRIAXone\\ROCEPHIN 1 GM in Sodium Chloride 0.9% 100 ML IVPB SCH (20:28)
[2019-09-28] MEDS: Vancomycin 1 GM in Premix Bag 1 BAG IVPB SCH (22:13)
[2019-09-29 05:58] LABS: INR-International Normal Ratio 1.9; Prothrombin Time 22.1 SEC (12.0-14.7)
[2019-09-29] MEDS: FLUoxetine HCl 20 MG CAP PO SCH (09:27)
[2019-09-29] MEDS: Magnesium Oxide 250 MG TAB PO SCH (09:27)
[2019-09-29] MEDS: Amlodipine 5 MG TAB PO SCH (09:28)
[2019-09-29] MEDS: Spironolactone 25 MG TAB PO SCH (09:28)
[2019-09-29] MEDS: Famotidine 20 MG TAB PO SCH ×2 (09:29→21:03)
--- NOTE | 2019-09-29 11:23 | PDOC.HOSPP ---
- Subjective Encounter Date: 09/29/19 Encounter Time: 08:30 Subjective: right forearm is getting better no dizziness or sob is sitting in chair and eating breakfast - Objective Vital Signs & Weight: Vital Signs (12 hours) Temp Pulse Resp BP BP BP Pulse Ox 09/29/19 09:28 66 88/66 L 09/29/19 08:00 97.4 F L 66 16 88/66 L 97 09/29/19 04:00 97.6 F 53 L 18 116/60 96 09/29/19 00:00 97.5 F L 51 L 18 122/75 96 Weight Weight 166 lb 6 oz I&O: 09/28/19 09/29/19 09/30/19 06:59 06:59 06:59 Intake Total 1520 Balance 1520 Result Diagrams: 09/28/19 05:00 09/28/19 05:00 Hospitalist ROS - Medication Medications: Active Medications Generic Name Dose Route Start Last Admin Trade Name Freq PRN Reason Stop Dose Admin Acetaminophen 1,000 mg 09/27/19 18:10 09/28/19 15:56 Tylenol PO 1,000 mg Q6H PRN Administration Moderate to Severe Pain (6-10) Amlodipine Besylate 5 mg 09/28/19 09:00 09/29/19 09:28 Norvasc PO Not Given QAM MARK Atorvastatin Calcium 20 mg 09/27/19 21:00 09/28/19 20:27 Lipitor PO 20 mg HS MARK Administration Doxazosin Mesylate 2 mg 09/27/19 21:00 09/28/19 20:27 Cardura PO 2 mg HS MARK Administration Famotidine 20 mg 09/27/19 21:00 09/29/19 09:29 Pepcid PO 20 mg BID MARK Administration Fluoxetine HCl 40 mg 09/28/19 09:00 09/29/19 09:27 Prozac PO 40 mg DAILY MARK Administration Ceftriaxone Sodium 1 gm/ 100 mls @ 200 mls/hr 09/28/19 20:00 09/28/19 20:28 Sodium Chloride IVPB 100 mls Q24HR MARK Administration Vancomycin HCl 1 gm/ Device 200 mls @ 200 mls/hr 09/27/19 21:00 09/28/19 22: 13 IVPB 200 mls 2100 MARK Administration Latanoprost 1 drop 09/27/19 21:00 09/28/19 20:28 Xalatan 0.005% Ophth Soln EA EYE 1 drop HS MARK Administration Magnesium Oxide 250 mg 09/28/19 09:00 09/29/19 09:27 Magnesium Oxide PO 250 mg DAILY MARK Administration Spironolactone 25 mg 09/28/19 09:00 09/29/19 09:28 Aldactone PO 25 mg QAM MARK Administration Warfarin Sodium 5 mg 09/28/19 17:00 09/28/19 17:17 Coumadin PO 5 mg 1700 MARK Administration - Exam General Appearance: awake alert Eye: PERRL, anicteric sclera ENT: no oropharyngeal lesions, moist mucosa Neck: supple, no JVD Heart: RRR, no murmur Respiratory: no wheezes, no rales Gastrointestinal: soft, non-tender, non-distended, normal bowel sounds Extremities - other findings: right forearm erythema and edema is receding Neurological: cranial nerve grossly intact, no focal deficits Hosp A/P (1) Cellulitis of right forearm Code(s): L03.113 - CELLULITIS OF RIGHT UPPER LIMB Status: Acute (2) H/O mitral valve replacement with mechanical valve Code(s): Z95.2 - PRESENCE OF PROSTHETIC HEART VALVE Status: Chronic (3) HTN (hypertension) Code(s): I10 - ESSENTIAL (PRIMARY) HYPERTENSION Status: Chronic Qualifiers: Hypertension type: essential hypertension Qualified Code(s): I10 - Essential (primary) hypertension (4) Hypothyroidism Code(s): E03.9 - HYPOTHYROIDISM, UNSPECIFIED Status: Chronic Qualifiers: Hypothyroidism type: unspecified Qualified Code(s): E03.9 - Hypothyroidism , unspecified (5) Dyslipidemia Code(s): E78.5 - HYPERLIPIDEMIA, UNSPECIFIED Status: Chronic - Plan is on vanc and ceftriaxone right forearm cellulitis is slowly resolving, will need another of iv antibiotics hemostable hold norvasc and spironolactone for now to amb in room as tolerated.
[2019-09-29] MEDS: Warfarin Sodium 5 MG TAB PO SCH (16:37)
[2019-09-29 19:14] LABS: Vancomycin, Trough 9.7 ug/mL
[2019-09-29] MEDS ORDERED: Vancomycin HCl 1.25 GM in Sodium Chloride 0.9% 250 ML 250 ML IVPB SCH (21:00)
[2019-09-29] MEDS: cefTRIAXone\\ROCEPHIN 1 GM in Sodium Chloride 0.9% 100 ML IVPB SCH (21:03)
[2019-09-29] MEDS: Atorvastatin Calcium 20 MG TAB PO SCH (21:03)
[2019-09-29] MEDS: Doxazosin 2 MG TAB PO SCH (21:03)
[2019-09-29] MEDS: Latanoprost 0.005% Ophth Soln 2.5 ml Bottle EA EYE SCH (21:09)
[2019-09-30 05:43] LABS: INR-International Normal Ratio 1.9
[2019-09-30] MEDS: Magnesium Oxide 250 MG TAB PO SCH (07:49)
[2019-09-30] MEDS: FLUoxetine HCl 20 MG CAP PO SCH (07:49)
[2019-09-30] MEDS: Famotidine 20 MG TAB PO SCH (07:49)
[2019-09-30 07:56] VITALS: BP 113/64; TEMP 97.4
[2019-09-30 09:06] LABS: Hemoglobin 12.6 g/dL (12.0-16.0); Platelet Count 244 thou/uL (130-400)
--- NOTE | 2019-09-30 13:04 | DIS ---
DATE OF ADMISSION: 09/27/2019 DATE OF DISCHARGE: 09/30/2019 DISCHARGE DISPOSITION: Home. PRIMARY DISCHARGE DIAGNOSIS: Right forearm cellulitis, resolving, failed outpatient antibiotics. SECONDARY DISCHARGE DIAGNOSES: History of mechanical mitral valve, hypertension, hypothyroidism, and dyslipidemia. PROCEDURES DONE DURING HOSPITALIZATION: Blood cultures x2, no growth. H and H 12 and 37, platelet count 244. Discharge INR is 1.9, PT of 22. BUN 17, creatinine 0.8. DISCHARGE MEDICATIONS: 1. Keflex 500 mg p.o. 3 times daily for another 10 days. 2. Ultram p.r.n. for pain. 3. Coumadin 5 mg p.o. at bedtime. 4. Simvastatin 40 mg p.o. q.p.m. 5. Zoloft 100 mg p.o. daily. 6. Florastor 250 mg p.o. daily. 7. Latanoprost eyedrops as before at bedtime. 8. Doxazosin 2 mg p.o. at bedtime. 9. Vitamin D3 of 1000 units p.o. daily. ALLERGIES: NO KNOWN DRUG ALLERGIES. DISCHARGE PLAN: The patient to follow up with Dr. Kim in 3 days. She also needs [facility] check [facility] on [facility]. BRIEF COURSE DURING HOSPITALIZATION: The patient initially came to ER with complaints of right forearm edema and redness. She had taken Keflex prior to arrival, which did not seem to help and the patient had worsening erythema and edema then. She also had a temperature of 99 degrees. In view of this, the patient was admitted to medical floor. She was placed on vancomycin and ceftriaxone. She has responded well to IV antibiotics. She is placed back on Keflex to continue for 10 days now. Her is receding and edema is resolved in the right forearm. The patient is advised to check her INR on Sunday at the [facility]. She has mechanical mitral valve. She is otherwise hemodynamically stable, ambulating and eating well prior to discharge. Job ID: [id number]
[2019-09-30] MEDS ORDERED: Warfarin Sodium 7.5 MG TAB PO SCH (17:00)
== END 2019-09-30 10:49 | disposition home or self-care (01) | DRG 603 ==
LOC: ERS 13:52 → T4-B 16:30
PROVIDERS: ADMIT Internal Medicine; ATTEND Internal Medicine
DX: L03.113 Cellulitis of right upper limb (principal); I10 Essential (primary) hypertension; E78.5 Hyperlipidemia, unspecified; F41.9 Anxiety disorder, unspecified; Z96.651 Presence of right artificial knee joint; M81.0 Age-related osteoporosis without current pathological fracture; E03.9 Hypothyroidism, unspecified; Z79.01 Long term (current) use of anticoagulants; Z95.2 Presence of prosthetic heart valve; Z95.1 Presence of aortocoronary bypass graft; Z90.710 Acquired absence of both cervix and uterus
CPT/HCPCS: 36415; 80048; 80053; 80202; 83605; 85014; 85018; 85025; 85049; 85610; 85730; 87040; 96365; J0692; J0696; J3370; J3490; J7050

== ENCOUNTER 2020-10-05 08:40 | Outpatient (CLI) | payer MEDICARE | END 2020-10-05 08:41 | disposition home or self-care (01) | LOC: BICMAMMO 08:40 | PROVIDERS: ATTEND Family Medicine | DX: Z12.31 Encounter for screening mammogram for malignant neoplasm of breast (principal) | CPT/HCPCS: 77063; 77067 ==

== ENCOUNTER 2021-08-05 18:51 | Emergency (ER) | payer OTHER, MEDICARE | END 2021-08-05 20:24 | disposition home or self-care (01) | LOC: ERS 18:51 | DX: S40.022A Contusion of left upper arm, initial encounter (principal); E78.5 Hyperlipidemia, unspecified; I10 Essential (primary) hypertension; Z87.891 Personal history of nicotine dependence; Z79.899 Other long term (current) drug therapy; Z79.01 Long term (current) use of anticoagulants; W01.0XXA Fall on same level from slipping, tripping and stumbling without subsequent striking against object, initial encounter ==

== ENCOUNTER 2021-11-21 10:33 | Outpatient (CLI) | payer MEDICARE | END 2021-11-21 10:34 | disposition home or self-care (01) | LOC: BICMAMMO 10:33 | PROVIDERS: ATTEND Family Medicine | DX: Z12.31 Encounter for screening mammogram for malignant neoplasm of breast (principal); Z13.820 Encounter for screening for osteoporosis; N95.9 Unspecified menopausal and perimenopausal disorder; M85.851 Other specified disorders of bone density and structure, right thigh; M85.852 Other specified disorders of bone density and structure, left thigh | CPT/HCPCS: 77063; 77067; 77080 ==

== ENCOUNTER 2022-03-13 06:00 | Emergency (ER) | payer MEDICARE, OTHER ==
[2022-03-13] MEDS ORDERED: traMADol HCl 50 MG TAB ONE (08:39)
== END 2022-03-13 08:51 | disposition home or self-care (01) ==
LOC: ERS 06:00
DX: M25.521 Pain in right elbow (principal); E78.5 Hyperlipidemia, unspecified; I10 Essential (primary) hypertension; Z87.891 Personal history of nicotine dependence; Z79.899 Other long term (current) drug therapy; Z79.01 Long term (current) use of anticoagulants

== ENCOUNTER 2022-03-31 14:34 | Outpatient (CLI) | payer MEDICARE, OTHER | END 2022-03-31 14:35 | disposition home or self-care (01) | LOC: BICMRI 14:34 | PROVIDERS: ATTEND Nurse Practitioner Family | DX: M47.22 Other spondylosis with radiculopathy, cervical region (principal) | CPT/HCPCS: 72141 ==

== ENCOUNTER 2022-08-15 18:11 | Observation (INO) | payer MEDICARE, OTHER ==
[~2022-08-15 18:11] MED LIST: Iopamidol-370 76% 500 ML 1 ML ONE
[2022-08-15 19:33] LABS: #Eosinphils 0.1 thou/uL (0.0-0.7); #Lymphocytes 1.4 thou/uL (1.20-3.40); #Monocytes 0.5 thou/uL (0.11-0.59); #Neutrophils 3.3 thou/uL (1.40-6.50); %Eosinophils 1.7 % (0.0-10.0); %Lymphocytes 26.1 % (21.0-51.0); %Monocytes 8.5 % (0.0-10.0); %Neutrophils 63.7 % (42.0-75.0); Hemoglobin 10.3 g/dL (12.0-16.0); Mean Corpuscular HGB CONC 32.3 g/dL (32.0-36.0); Mean Corpuscular Hemoglobin 29.6 pg (27.0-31.0); Mean Corpuscular Volume 91.4 fl (78.0-98.0); Mean Platelet Volume 8.4 fL (7.4-10.4); Platelet Count 234 10x3/uL (130-400); RBC Distribution Width 13.2 % (11.5-14.5); Red Blood Cell (RBC) Count 3.49 mill/uL (4.20-5.40); White Blood Cell (WBC) Count 5.3 10x3/uL (4.8-10.8)
[2022-08-15 19:52] LABS: ALT (SGPT) 13 U/L (8-55); AST (SGOT) 16 U/L (5-34); Albumin 3.8 g/dL (3.4-4.8); Alkaline Phosphatase 87 U/L (40-110); Anion Gap 10 mmol/L (10-20); BUN (Urea Nitrogen) 29 mg/dL (9.8-20.1); Bilirubin, Total 0.4 mg/dL (0.2-1.2); Calc. Creatinine Clearance 0 mL/min (70-130); Calcium 9.2 mg/dL (7.8-10.44); Carbon Dioxide 24 mmol/L (23-31); Chloride 112 mmol/L (98-107); Estimated GFR 44; Globulin 2.9 g/dL (2.4-3.5); Glucose 101 mg/dL (83-110); Potassium 4.4 mmol/L (3.5-5.1); Protein, Total 6.7 g/dL (5.8-8.1); Sodium 142 mmol/L (136-145)
[2022-08-15] MEDS ORDERED: predniSONE 20 MG TAB ONE (21:27)
[2022-08-15] MEDS ORDERED: Ondansetron PF 4 MG/2 ML Vial IVP PRN (23:28)
[2022-08-15] MEDS ORDERED: hydrALAZINE 20 MG/ML VIAL SLOW IVP PRN (23:28)
[2022-08-15] MEDS ORDERED: Ondansetron ODT 4 MG TAB PO PRN (23:28)
[2022-08-15] MEDS ORDERED: Acetaminophen 325 MG TAB PO PRN (23:28)
[2022-08-15] MEDS ORDERED: Acetaminophen 650 MG Suppository PR PRN (23:28)
[2022-08-15 23:40] LABS: SARS-CoV-2 NAA Rapid Test Not Detected (NotDetected)
[2022-08-15 23:59] LABS: INR-International Normal Ratio 2.6; PTT 35.2 sec (22.9-36.1); Prothrombin Time 29.1 sec (12.0-14.7)
[2022-08-16] MEDS ORDERED: Warfarin Sodium 5 MG TAB PO SCH ×2 (00:45→17:00)
[2022-08-16 01:38] VITALS: BMI 32.0
[2022-08-16 04:50] LABS: #Lymphocytes 0.7 thou/uL (1.20-3.40); #Monocytes 0.1 thou/uL (0.11-0.59); #Neutrophils 3.5 thou/uL (1.40-6.50); %Basophils 0.2 % (0.0-1.0); %Eosinophils 0.1 % (0.0-10.0); %Lymphocytes 15.6 % (21.0-51.0); %Monocytes 1.2 % (0.0-10.0); Hemoglobin 10.2 g/dL (12.0-16.0); Mean Corpuscular HGB CONC 32.5 g/dL (32.0-36.0); Mean Corpuscular Hemoglobin 29.7 pg (27.0-31.0); Mean Corpuscular Volume 91.2 fl (78.0-98.0); Mean Platelet Volume 8.1 fL (7.4-10.4); Platelet Count 222 10x3/uL (130-400); RBC Distribution Width 13.1 % (11.5-14.5); Red Blood Cell (RBC) Count 3.43 mill/uL (4.20-5.40); White Blood Cell (WBC) Count 4.2 10x3/uL (4.8-10.8)
[2022-08-16 04:52] VITALS: TEMP 98.2
[2022-08-16 05:21] LABS: Anion Gap 11 mmol/L (10-20); BUN (Urea Nitrogen) 28 mg/dL (9.8-20.1); Calc. Creatinine Clearance 61 mL/min (70-130); Calcium 8.9 mg/dL (7.8-10.44); Carbon Dioxide 22 mmol/L (23-31); Cardiac Risk 2.1 (Less than 4.5); Chloride 111 mmol/L (98-107); Cholesterol 140 mg/dl (< 200 Desired); Estimated GFR 56; Glucose 183 mg/dL (83-110); HDL Cholesterol 66 mg/dL (>60 Neg Risk); LDL Cholesterol, Calculated 68 mg/dL; Potassium 4.5 mmol/L (3.5-5.1); Sodium 139 mmol/L (136-145); Triglycerides 30 mg/dL (Less than 150)
[2022-08-16 13:48] VITALS: BP 183/79
[2022-08-16] MEDS ORDERED: Atorvastatin Calcium 40 MG TAB PO SCH (21:00)
[2022-08-17] MEDS ORDERED: Aspirin 81 mg Enteric Coated Tablet PO SCH (09:00)
== END 2022-08-16 14:08 | disposition home or self-care (01) ==
LOC: ERS 18:11 → ERHOLD 22:30
PROVIDERS: ADMIT Family Medicine; ATTEND Family Medicine
DX: H54.61 Unqualified visual loss, right eye, normal vision left eye (principal); E03.9 Hypothyroidism, unspecified; E78.5 Hyperlipidemia, unspecified; I10 Essential (primary) hypertension; I25.10 Atherosclerotic heart disease of native coronary artery without angina pectoris; M81.0 Age-related osteoporosis without current pathological fracture; Z87.891 Personal history of nicotine dependence; Z79.01 Long term (current) use of anticoagulants; Z79.82 Long term (current) use of aspirin; Z79.899 Other long term (current) drug therapy; Z95.1 Presence of aortocoronary bypass graft; Z95.2 Presence of prosthetic heart valve; Z98.41 Cataract extraction status, right eye; Z98.42 Cataract extraction status, left eye; Z96.1 Presence of intraocular lens; Z20.822 Contact with and (suspected) exposure to COVID-19
CPT/HCPCS: 70496; 70551; 80048; 80053; 80061; 85025 ×2; 85610; 85652; 85730; 86140; 93005; 99285; U0002; 36415; G0378; J7512; Q9967

== ENCOUNTER 2022-08-28 05:39 | Day surgery (SDC) | payer MEDICARE, OTHER ==
[2022-08-25 10:09] VITALS: BMI 34.2
[2022-08-28] MEDS ORDERED: Lidocaine 1% PF 5 ML VIAL ONE (07:48)
[2022-08-28] MEDS ORDERED: PROPOFOL 60 ML ONE (08:12)
== END 2022-08-28 09:43 | disposition home or self-care (01) ==
LOC: SDC 05:39
PROVIDERS: ATTEND Internal Medicine Cardiovascular Disease
PROC: B246ZZ4 Ultrasonography of Right and Left Heart, Transesophageal (ICD-10-PCS; principal; 2022-08-28)
DX: H34.9 Unspecified retinal vascular occlusion (principal); E78.2 Mixed hyperlipidemia; I10 Essential (primary) hypertension; I25.10 Atherosclerotic heart disease of native coronary artery without angina pectoris; M19.90 Unspecified osteoarthritis, unspecified site; E21.3 Hyperparathyroidism, unspecified; Z87.891 Personal history of nicotine dependence; Z79.01 Long term (current) use of anticoagulants; Z79.82 Long term (current) use of aspirin; Z79.83 Long term (current) use of bisphosphonates; Z79.899 Other long term (current) drug therapy; Z88.5 Allergy status to narcotic agent; Z95.1 Presence of aortocoronary bypass graft; Z95.2 Presence of prosthetic heart valve
CPT/HCPCS: 93312; J2704

== ENCOUNTER 2025-06-20 09:28 | Emergency (ER) | payer OTHER ==
[2025-06-20] MEDS ORDERED: Ondansetron PF 4 MG/2 ML Vial ONE (10:19)
[2025-06-20 10:45] LABS: #Basophils Less than 0.03 10x3/uL (0.0-0.2); #Eosinophils 0.10 10x3/uL (0.0-0.7); #Monocytes 0.59 10x3/uL (0.11-0.59); #Neutrophils 3.64 10x3/uL (1.40-6.50); %Basophils 0.4 % (0.0-1.0); %Eosinophils 1.8 % (0.0-10.0); %Lymphocytes 20.7 % (21.0-51.0); %Monocytes 10.7 % (0.0-10.0); %Neutrophils 66.0 % (42.0-75.0); Hematocrit 30.7 % (36.0-47.0); Hemoglobin 9.3 g/dL (12.0-16.0); Mean Corpuscular Hemoglobin 26.6 pg (27.0-31.0); Mean Corpuscular Volume 87.7 fL (78.0-98.0); Platelet Count 236 10x3/uL (130-400); Red Blood Cell (RBC) Count 3.50 mill/uL (4.20-5.40); White Blood Cell (WBC) Count 5.51 10x3/uL (4.8-10.8)
[2025-06-20 10:59] LABS: INR-International Normal Ratio 3.2; PTT 58.2 sec (22.9-36.1); Prothrombin Time 32.8 sec (12.0-14.7)
[2025-06-20 11:02] LABS: ALT (SGPT) 10 U/L (Less than 34); AST (SGOT) 18 U/L (11-34); Albumin 3.2 g/dL (3.1-4.5); Alkaline Phosphatase 91 U/L (40-110); Anion Gap 12 mmol/L (10-20); BUN (Urea Nitrogen) 20 mg/dL (9.8-20.1); Bilirubin, Total 0.3 mg/dL (0.3-1.2); Calc. Creatinine Clearance 0 mL/min (70-130); Calcium 8.5 mg/dL (7.8-10.44); Carbon Dioxide 24 mmol/L (23-31); Chloride 111 mmol/L (98-107); Globulin 3.0 g/dL (2.4-3.5); Glucose 90 mg/dL (83-110); Potassium 4.5 mmol/L (3.5-5.1); Sodium 142 mmol/L (136-145)
[2025-06-20] MEDS ORDERED: Iopamidol-370 76% 500 ML MDV (1 ML CHARGE) ONE (13:56)
== END 2025-06-20 14:15 | disposition home or self-care (01) ==
LOC: ERS 09:28
DX: R07.89 Other chest pain (principal); R05.9 Cough, unspecified; I10 Essential (primary) hypertension; Z87.891 Personal history of nicotine dependence
CPT/HCPCS: 71045; 71275; 80053; 84484; 85025; 85610; 85730; 87428; 93005; 94760; J2270; J2405; 36415; 96374; 96375; Q9967